=== PATIENT | female | born 1945 | race Two or more races ===

== ENCOUNTER 2025-05-13 17:25 | Inpatient (IN) | payer MEDICARE, MEDICAID ==
[~2025-05-13] VITALS: Ht 157.5 cm; Wt 62.0 kg
--- NOTE | 2025-05-13 18:44 | DVH ---
INDICATION: sob TECHNIQUE: Frontal view of the chest. COMPARISON: None FINDINGS/IMPRESSION: Small right pleural effusion with adjacent opacity. Mild prominence of the cardiomediastinal silhouette. No pneumothorax. S shaped scoliosis.
[2025-05-13 18:51] LABS: Hematocrit 41.5 % (36.0-46.0); Hemoglobin 13.8 g/dL (12.2-16.2); Mean Corpuscular Hemoglobin 31.7 pg (28.0-32.0); Mean Corpuscular Volume 95.4 fL (80.0-100.0); Nucleated Red Blood Cells % 0.1 %
[2025-05-13 19:02] LABS: Alanine Aminotransferase 11 U/L (7-40); Albumin 4.3 g/dL (3.2-4.8); Alkaline Phosphatase 70 U/L (46-116); Anion Gap 13 (5-15); BUN/Creatinine Ratio 7.4 (10.0-20.0); Bilirubin, Total 0.3 mg/dL (0.2-1.0); Calcium 9.0 mg/dL (8.7-10.4); Carbon Dioxide 32 mmol/L (20-31); Chloride 96 mmol/L (98-107); Glucose 114 mg/dL (74-106); Potassium 4.5 mmol/L (3.5-5.1); Sodium 141 mmol/L (136-145); Total Protein 7.7 g/dL (5.7-8.2)
[2025-05-13 19:03] LABS: Blood Urea Nitrogen 51 mg/dL (9-23)
--- NOTE | 2025-05-13 19:35 | ED.PDOC ---
SOB-HPI HPI Comments HPI: 79 y/o F, with PMHx of HTN, HLD, and anemia presents to the ED for CC of shortness of breath. Patient states, she has been experiencing symptoms of shortness of breath with associated weakness, dizziness, and faintness worsening in the last x1week. Patient reports, to have ESRD and is on dialysis receiving Tx every (M,W,F); endorses last time dialyzed to have been as of yesterday (05/13/25). Patient denies cough, fever, chills, chest pain, or palpitations. PMHx: ESRD, HTN, HLD, ANEMIA, OSTEOPOROSIS, SCOLIOSIS, ANEMIA W/ PREVIOUS BLOOD TRANSFUSION SHX: HERNIA REPAIR Vitals: T:98.0 HR:115 RR:18 BP:165/70 O2:98% Rx: DENIES ANY Allergies: PILAR CASTILLO: STANLEY. DYSPNEA DIZZINESS AND WEAKNESS FOR THE LAST THREE DAYS WORSE TODAY. DIALYSIS SESSION YESTERDAY STILL MAKES URINE. HPI: Poor Historian. REVIEW OF SYSTEMS: CONSTITUTIONAL: Denies acute: fever, diaphoresis, chills, HEAD: Denies acute: headache, photophobia Eyes: Denies acute: Double vision, vision loss, eye pain, eye discharge. EARS: Denies acute: tinnitus, hearing loss, ear discharge, ear pain, THROAT: Denies acute: sore throat, swelling, difficulty swallowing , pain with swallowing, change in voice. NECK: Denies acute: neck pain, neck swelling, stiff neck. HEART: Denies acute : chest pain, palpitations, LUNGS: Denies acute: , wheezing, cough, hemoptysis ABDOMEN: Denies acute: abdominal pain, Nausea, Vomiting, diarrhea, melena , hematemesis, hematochezia SKIN: Denies acute: rash, redness, lesions, itchiness. EXTREMITIES: Denies acute: calf pain, numbness, tingling, weakness, denies pain in extremity. Denies acute: Low back pain. Neuro: Denies acute: focal neurological deficit, motor or sensory focal neurological deficit, tremors, seizure like activity, confusion, , change in mental status, loss of bowel or bladder function, cauda equina like symptoms. : Denies acute: dysuria, hematuria, flank pain, increase in urinary frequency. PSYCH: Denies acute: hallucination, suicidal ideation, homicidal ideation. FEMALE: Denies acute: abnormal vaginal bleeding, foul odor, unusual discharge. PHYSICAL EXAM: General: -----moderate---acute distress, awake and alert. Head: normocephalic, atraumatic. No raccoon's eyes, no engle sign. Neck: supple, trachea is midline, no swelling. Throat: Normal phonation. Eyes:, no erythema, no purulent discharge, no proptosis, no icterus. Heart: regular rate, regular rhythm, no significant murmur appreciated. Lungs: no apparent respiratory distress, Able to speak in full sentences. No wheezing, no rhonchi, no crackles. No stridors Clear to auscultation bilaterally. Abdomen: non tender to palpation, non distended, soft, no guarding, no rebound, + bowel sounds. Neuro: Awake, Alert, oriented to name, self, situation, follows commands GCS=15. Speech is normal. Skin: no petechia, no purpura, no cyanosis, non-pale, not jaundice. Lower extremities: --no - Pitting edema no deformity, no focal swelling, no calf TTP. Makes eye contact. moves all four extremities. Face: no apparent facial droop. ED COURSE: DISCLAIMER: This medical document was created using an electronic medical record system with voice recognition software and computerized dictation system. Although this document has been carefully reviewed, there might still be some phonetic and typographical errors. Occasional wrong-word or "sound-alike" substitutions may have occurred due to the inherent limitations of voice recognition software. These areas are purely typographical due to imperfections of the software programs and do not reflect any compromise in the patient's medical care. Please read the chart carefully and recognize, using context, where these substitutions have occurred. Chief Complaint: Shortness of Breath Time Seen by MD: 19:20 Reviewed notes: Nurses Notes, Medications, Allergies Information Source: Patient Mode of Arrival: Ambulatory Severity: Moderate Timing: Weeks Duration: Since onset Context: At Rest PE Risk Factors: None History of: None Prehospital treatment: None Modifying Factors: Nothing Was a procedure done? Was a procedure done?: No Differential Dx Differential Diagnosis: Bronchitis, Pneumonia, Pharyngitis, URI, Other (DDx include ACS, unstable angina, anxiety, PE, pneumothroax, neoplasm, cardiac ischemia, COPD, asthma, CHF, pleural effusion, tobacco abuse, pneumonia, hypoxia , hypercapnia, anemia., infection/sepsis., pulmonary edema. Asthma, Cardiac tamponade, infection.) X-Ray, Labs, Meds, VS Vital Signs Date Time Temp Pulse Resp B/P (MAP) Pulse Ox O2 Delivery O2 Flow Rate FiO2 05/13/25 17:44 83 05/13/25 17:34 98.0 115 18 165/70 98 98.0 Lab Test 05/13/25 21:14 05/13/25 19:22 05/13/25 18:32 05/13/25 17:49 Range/Units Troponin I High Sensitivity 26 26 26 </=34 ng/L White Blood Count 5.7 4.4-10.8 10^3/uL Red Blood Count 4.35 4.0-5.20 10^6/uL Hemoglobin 13.8 12.2-16.2 g/dL Hematocrit 41.5 36.0-46.0 % Mean Corpuscular Volume 95.4 80.0-100.0 fL Mean Corpuscular Hemoglobin 31.7 28.0-32.0 pg Mean Corpuscular Hemoglobin Concent 33.2 32.0-36.0 g/dL Red Cell Distribution Width 16.1 H 11.8-14.3 % Platelet Count 234 140-450 10^3/uL Mean Platelet Volume 7.8 6.9-10.8 fL Neutrophils (%) (Auto) 61.6 37.0-80.0 % Lymphocytes (%) (Auto) 26.4 10.0-50.0 % Monocytes (%) (Auto) 9.3 0.0-12.0 % Eosinophils (%) (Auto) 1.6 0.0-7.0 % Basophils (%) (Auto) 1.1 0.0-2.0 % Neutrophils # (Auto) 3.5 1.6-8.6 10 ^3/uL Lymphocytes # (Auto) 1.5 0.4-5.4 10 ^3/uL Monocytes # (Auto) 0.5 0-1.3 10 ^3/uL Eosinophils # (Auto) 0.1 0-0.8 10 ^3/uL Basophils # (Auto) 0.1 0-0.2 10 ^3/uL Nucleated Red Blood Cells 0.1 % D-Dimer, Quantitative 1.17 H 0.0-0.49 mg/L FEU Sodium Level 141 136-145 mmol/L Potassium Level 4.5 3.5-5.1 mmol/L Chloride Level 96 L 98-107 mmol/L Carbon Dioxide Level 32 H 20-31 mmol/L Anion Gap 13 5-15 Blood Urea Nitrogen 51 H 9-23 mg/dL Creatinine 6.92 H 0.550-1.02 mg/dL Glomerular Filtration Rate Calc 6 >90 mL/min BUN/Creatinine Ratio 7.4 L 10.0-20.0 Serum Glucose 114 H 74-106 mg/dL Calcium Level 9.0 8.7-10.4 mg/dL Total Bilirubin 0.3 0.2-1.0 mg/dL Aspartate Amino Transferase (AST) 16 13-40 U/L Alanine Aminotransferase (ALT) 11 7-40 U/L Alkaline Phosphatase 70 46-116 U/L Total Protein 7.7 5.7-8.2 g/dL Albumin 4.3 3.2-4.8 g/dL POC Glucose 153 H 70-106 mg/dl [place] [id number] Ph: [phone] DIAGNOSTIC IMAGING Diagnostic Imaging Report : [id number] Signed PATIENT: STANLEY CASTILLO ACCT: [id number] UNIT: [id number] : 1945 LOC: ER ROOM / BED: / AGE / SEX: 79 / F ADM STATUS: REG ER SERVICE 06 ORDERING PHYSICIAN: YAS RIOS DO PROCEDURE(s): CXRP - CHEST PORTABLE REASON: sob ORDER NUMBER(s): [id number], ACCESSION NUMBER(s): [id number] INDICATION: sob TECHNIQUE: Frontal view of the chest. COMPARISON: None FINDINGS/IMPRESSION: Small right pleural effusion with adjacent opacity. Mild prominence of the cardiomediastinal silhouette. No pneumothorax. S shaped scoliosis. ATED BY: WANDER FRITZ MD DICTATED DATE/TIME: 05/13/251841 SIGNED BY: WANDER FRITZ MD SIGNED DATE/TIME: 05/13/251841 CC: Time of 1ST Reevaluation: 19:50 Reevaluation 1ST: Unchanged Patient Education/Counseling: Diagnosis, Treatment Family Education/Counseling: Diagnosis, Treatment SEPSIS Sepsis Screen Date sepsis recognized/suspect: May 13, 2025 Time Sepsis recognized/suspect: 1736 Recent Procedure: No On Antibiotic Therapy: No Respiratory Rate >20: No Heart Rate >90: Yes Temp<36 C (96.8 F) or >38.3 C: No SBP <90 or MAP <65 mmHG: No New Acute Mental Status Change: No Is the patient on CPAP, BIPAP,: No Physician Orders Electrocardigram (05/13/25 18:05) Help Desk Operator (05/13/25 ) Chest Portable (05/13/25 18:07) Vital Signs Date Time Temp Pulse Resp B/P (MAP) Pulse Ox O2 Delivery O2 Flow Rate FiO2 05/13/25 17:44 83 05/13/25 17:34 98.0 115 18 165/70 98 98.0 Laboratory Tests Test 05/13/25 18:32 White Blood Count 5.7 10^3/uL (4.4-10.8) Departure 1 Departure Time of Disposition: 20:13 Impression: Primary Impression: Dyspnea Additional Impressions: Pleural effusion End-stage renal disease on hemodialysis Dizziness Generalized weakness Disposition: ADMITTED INPATIENT Admit to: [facility] Condition: Guarded Discharged With: Self Critical Care Note Critical Care Time?: Yes (35 min-critical care time only) Critical care comment: Due to a high probability of clinically significant, life threatening deterioration, the patient required my highest level of preparedness to intervene emergently and I personally spent this critical care time directly and personally managing the patient. This critical care time included obtaining a history; examining the patient; pulse oximetry; ordering and review of studies; arranging urgent treatment with development of a management plan; evaluation of patient's response to treatment; frequent reassessment; and, discussions with other providers. This critical care time was performed to assess and manage the high probability of imminent, life-threatening deterioration that could result in multi-organ failure. It was exclusive of separately billable procedures and treating other patients and teaching time. Please see my other sections and the rest of the note for further information on patient assessment and treatment. Heart Score Heart Score: Heart Score Response (Comments) Value History Slightly Suspicious 0 EKG Normal 0 Age >65 2 Risk Factors 1 or 2 risk factors 1 Troponin Normal limit 0 Total 3 I personally scribed for YAS RIOS DO ([email or web address]) on 05/13/25 at 19:35. Electronically submitted by Dina Avitia ([email or web address]). I personally scribed for YAS RIOS DO ([email or web address]) on 05/13/25 at 19:37. Electronically submitted by Dina Avitia ([email or web address]). I personally scribed for YAS RIOS DO ([email or web address]) on 05/13/25 at 22:18. Electronically submitted by Crystal Gonzalez ([email or web address]). YAS RIOS DO May 13, 2025 19:35
[2025-05-13] MEDS ORDERED: NITROGLYCERIN 0.4 MG SL TAB SL PRN (22:15)
[2025-05-13] MEDS ORDERED: MORPHINE SULFATE INJ 2 MG/ml SYRG IV PRN (22:15)
--- NOTE | 2025-05-13 22:53 | DVHHPRES ---
History of Present Illness Resident Creating Document: JONATAN BREWSTER History of Present Illness Ms Lizbeth Taylor, a 79-year-old female accompanied by daughter, past medical history of ESRD on MWF hemodialysis, producing urine, left arm fistula, hypertension, hyperlipidemia, arthritis, anemia, [id number] type 2 diabetes mellitus,osteoporosis,scoliosis presented to the ER with a history of increasing shortness of breaths since last Monday (4 days back). She also reports having global headache for the same duration. According to the daughter the patient had a dialysis yesterday, the patient was feeling shortness of breaths to the point she had to use oxygen during dialysis. She was advised to go to the ER if shortness of breath persists. The patient reports shortness of breaths improves on sitting up and worsens on lying down. She denies any paroxysmal nocturnal dyspnea. She also reports having a episode of dizziness, she almost fainted and reports having blurry vision, which resolved now. This morning the patient visited the primary care physician, she referred the patient to a coal bagger. She does not have any traffic maintenance officer. Past medical history: As above Past surgical history: 30 years ago umbilical hernia repair. Allergies: None PCP: Dr. Belia Murrieta [place] years ago, 1 pack per week Drugs: Never Alcohol: Occasional Full code Review of Systems Respiratory: Shortness of breath, SOB with excertion Allergies: Coded Allergies: NO KNOWN ALLERGIES (Unverified , 05/13/25) Medications Current Medications Medications Dose Ordered Sig/Abilio Route Start Time Stop Time Status Last Admin Dose Admin Acetaminophen 650 mg Q6HP PRN PO 05/13/25 22:15 Nitroglycerin 0.4 mg Q5MINP PRN SL 05/13/25 22:15 Morphine Sulfate 2 mg Q30M PRN IV 05/13/25 22:15 Furosemide 40 mg DAILY IV 05/14/25 10:00 Exam Vital Signs Vital Signs Date Time Temp Pulse Resp B/P (MAP) Pulse Ox O2 Delivery O2 Flow Rate FiO2 05/13/25 17:44 83 05/13/25 17:34 98.0 18 165/70 98 98.0 Labs/Xrays Labs Test 05/13/25 21:14 05/13/25 18:32 05/13/25 17:49 Range/Units Troponin I High Sensitivity 26 </=34 ng/L White Blood Count 5.7 4.4-10.8 10^3/uL Red Blood Count 4.35 4.0-5.20 10^6/uL Hemoglobin 13.8 12.2-16.2 g/dL Hematocrit 41.5 36.0-46.0 % Mean Corpuscular Volume 95.4 80.0-100.0 fL Mean Corpuscular Hemoglobin 31.7 28.0-32.0 pg Mean Corpuscular Hemoglobin Concent 33.2 32.0-36.0 g/dL Red Cell Distribution Width 16.1 H 11.8-14.3 % Platelet Count 234 140-450 10^3/uL Mean Platelet Volume 7.8 6.9-10.8 fL Neutrophils (%) (Auto) 61.6 37.0-80.0 % Lymphocytes (%) (Auto) 26.4 10.0-50.0 % Monocytes (%) (Auto) 9.3 0.0-12.0 % Eosinophils (%) (Auto) 1.6 0.0-7.0 % Basophils (%) (Auto) 1.1 0.0-2.0 % Neutrophils # (Auto) 3.5 1.6-8.6 10 ^3/uL Lymphocytes # (Auto) 1.5 0.4-5.4 10 ^3/uL Monocytes # (Auto) 0.5 0-1.3 10 ^3/uL Eosinophils # (Auto) 0.1 0-0.8 10 ^3/uL Basophils # (Auto) 0.1 0-0.2 10 ^3/uL Nucleated Red Blood Cells 0.1 % D-Dimer, Quantitative 1.17 H 0.0-0.49 mg/L FEU Sodium Level 141 136-145 mmol/L Potassium Level 4.5 3.5-5.1 mmol/L Chloride Level 96 L 98-107 mmol/L Carbon Dioxide Level 32 H 20-31 mmol/L Anion Gap 13 5-15 Blood Urea Nitrogen 51 H 9-23 mg/dL Creatinine 6.92 H 0.550-1.02 mg/dL Glomerular Filtration Rate Calc 6 >90 mL/min BUN/Creatinine Ratio 7.4 L 10.0-20.0 Serum Glucose 114 H 74-106 mg/dL Calcium Level 9.0 8.7-10.4 mg/dL Total Bilirubin 0.3 0.2-1.0 mg/dL Aspartate Amino Transferase (AST) 16 13-40 U/L Alanine Aminotransferase (ALT) 11 7-40 U/L Alkaline Phosphatase 70 46-116 U/L Total Protein 7.7 5.7-8.2 g/dL Albumin 4.3 3.2-4.8 g/dL POC Glucose 153 H 70-106 mg/dl SEPSIS Sepsis Screen Date sepsis recognized/suspect: May 13, 2025 Time Sepsis recognized/suspect: 1736 Recent Procedure: No On Antibiotic Therapy: No Respiratory Rate >20: No Heart Rate >90: Yes Temp<36 C (96.8 F) or >38.3 C: No SBP <90 or MAP <65 mmHG: No New Acute Mental Status Change: No Is the patient on CPAP, BIPAP,: No Physician Orders Electrocardigram (05/13/25 18:05) Sample Mounter (05/13/25 ) Chest Portable (05/13/25 18:07) Admit (05/13/25 22:14) Allergies (05/13/25 22:14) Code Status (05/13/25 22:14) Oxygen Per Hour (05/13/25 22:14) Complete Blood Count (05/14/25 04:00) Comprehensive Metabolic Panel (05/14/25 04:00) Acetaminophen Tablet (Tylenol Tablet) (05/13/25 22:15) Sequential Compression Device (05/13/25 ) Nitroglycerin Sublingual (Ntrostat Subli (05/13/25 22:15) Morphine Sulfate Injection (05/13/25 22:15) Oxygen By Nasal Cannula (05/13/25 22:14) Stat Ekg For Chest Pain (05/13/25 22:14) Notify Md Of Changes From Base (05/13/25 22:14) District Court Justice For 24 Hours (05/13/25 22:14) Emergency Dysrhythmia Protocol (05/13/25 22:14) Rhythm Strips Once Every Shift (05/13/25 22:14) Furosemide Injection (Lasix Injection) (05/14/25 10:00) Vital Signs Date Time Temp Pulse Resp B/P (MAP) Pulse Ox O2 Delivery O2 Flow Rate FiO2 05/13/25 17:44 83 05/13/25 17:34 98.0 115 18 165/70 98 98.0 Laboratory Tests Test 05/13/25 18:32 White Blood Count 5.7 10^3/uL (4.4-10.8) Assessment/Plan Assessment/Plan ESRD on hemodialysis Hypertensive heart disease Chest x-ray: Cardiomegaly, pleural effusion -nephrology consulted -labetalol 300 mg b.i.d. -IV hydralazine -injection Lasix Type 2 diabetes mellitus -HbA1c ordered -Monitor blood glucose Presyncope -Orthostatic vitals and head CT ordered GI prophylaxis: Pantoprazole DVT prophylaxis: SCDs Diet: Cardiac Goals of care discussed with the patient for more than 27 minutes: Full code status Case discussed with , patient and RN Plan discussed with: Patient, Other (RN) My Orders Orders - JONATAN BREWSTER Procedure Category Date Status Time Admit ADMIT 05/13/25 Transmitted 22:14 Allergies ERON 05/13/25 In Process 22:14 Code Status CODE 05/13/25 Transmitted 22:14 Oxygen Per Hour RT 05/13/25 Transmitted 22:14 Complete Blood Count LAB 05/14/25 Verified 04:00 Comprehensive LAB 05/14/25 Verified Metabolic Panel 04:00 Acetaminophen Tablet PHA 05/13/25 In Process (Tylenol Tablet) 22:15 Sequential ERON 05/13/25 In Process Compression Device Nitroglycerin PHA 05/13/25 In Process Sublingual (Ntrostat 22:15 Morphine Sulfate PHA 05/13/25 In Process Injection 22:15 Oxygen By Nasal RT 05/13/25 Transmitted Cannula 22:14 Stat Ekg For Chest ERON 05/13/25 In Process Pain 22:14 Notify Md Of Changes ERON 05/13/25 In Process From Base 22:[address] Justice For ERON 05/13/25 In Process 24 Hours 22:14 Emergency Dysrhythmia ERON 05/13/25 In Process Protocol 22:14 Rhythm Strips Once ERON 05/13/25 In Process Every Shift 22:14 Furosemide Injection PHA 05/14/25 In Process (Lasix Injection) 10:00 Visit Coding STANDARD RES Billing Provider: RAFIA SLOAN MD Date of Service if different f: May 14, 2025 Common Visit Codes: 13660-NWOKJVR INP/OBS CARE (HIGH) Secondary Visit Codes: 37253-PTEAJXPN CARE PLAN 30 MINUTES JONATAN BREWSTER May 13, 2025 22:53
[2025-05-13] MEDS ORDERED: ATOR40TA52 PO (22:59)
[2025-05-13] MEDS ORDERED: LABE300T5 PO (23:07)
[2025-05-14] MEDS: FUROSEMIDE 100 MG/10ML VIAL IV ONE (01:58)
[2025-05-14 02:10] LABS: Base Excess 5.0 mmol/L (-2.0-3.0)
[2025-05-14] MEDS: hydrALAZINE HCL 20 MG/ML VL IV ONE (02:18)
[2025-05-14] MEDS ORDERED: DEXTROSE (50%) 50ML SYRG IV PRN (05:15)
[2025-05-14] MEDS: LABETALOL HCL 200 MG TAB PO ONE (05:29)
--- NOTE | 2025-05-14 06:46 | DVH ---
EXAM: CT HEAD WITHOUT CONTRAST INDICATION: Presyncope TECHNIQUE: CT of the head without intravenous contrast. Coronal and sagittal reformatted images are submitted. Radiation Dose : 1. Head: CT Dose: CTDI volume is 48.65 mGy. Dose-length product is 778.5 mGy*cm The dose indicators for CT are the volume Computed Tomography (CT) Dose Index (CTDIvol) and the Dose Length Product (DLP), and are measured in units of mGy and mGy-cm, respectively. These indicators are not patient dose, but values generated from the CT scanner acquisition factors. The report includes radiation exposure data for exposures received during this examination. All CT scans at this medical facility are performed using dose modulation techniques as appropriate to a performed exam including the following: Automated exposure control was utilized; adjustment of the MA and/or KV according to patient size; and use of iterative reconstruction technique. COMPARISON: None FINDINGS: There is no evidence of acute intracranial hemorrhage, extra-axial collection, mass effect, midline shift, herniation or hydrocephalus. There are periventricular and subcortical hypodensities, nonspecific, but likely reflecting sequelae of chronic microvascular ischemic changes. Generalized cortical volume loss. The ventricles, sulci and cisterns are age appropriate. The arias-white differentiation is intact. The visualized paranasal sinuses and mastoid air cells are clear. No depressed calvarial fracture. The surrounding soft tissues are unremarkable. IMPRESSION: 1. No evidence of acute intracranial abnormality. 2. Generalized volume loss and sequelae of chronic microvascular ischemic changes there are periventricular and subcortical white matter.
[2025-05-14] MEDS: ACCU-CHEK COMFORT CURVE STRIP VI SCH (06:55)
[2025-05-14] MEDS: InsuLIN REG 1unit/0.01ml Soln (100units/ml) SC SCH (06:55)
[2025-05-14 06:58] LABS: Hematocrit 37.9 % (36.0-46.0); Hemoglobin 12.8 g/dL (12.2-16.2); Mean Corpuscular Hemoglobin 31.8 pg (28.0-32.0); Mean Corpuscular Volume 94.1 fL (80.0-100.0); Nucleated Red Blood Cells % 0.2 %
[2025-05-14 07:24] LABS: Alanine Aminotransferase 11 U/L (7-40); Alkaline Phosphatase 60 U/L (46-116); Anion Gap 15 (5-15); BUN/Creatinine Ratio 6.6 (10.0-20.0); Calcium 8.9 mg/dL (8.7-10.4); Carbon Dioxide 28 mmol/L (20-31); Chloride 98 mmol/L (98-107); Glucose 81 mg/dL (74-106); Potassium 4.7 mmol/L (3.5-5.1); Sodium 141 mmol/L (136-145); Total Protein 7.2 g/dL (5.7-8.2)
[2025-05-14 07:26] LABS: Albumin 4.0 g/dL (3.2-4.8); Bilirubin, Total 0.4 mg/dL (0.2-1.0)
[2025-05-14 07:27] LABS: Blood Urea Nitrogen 50 mg/dL (9-23)
[2025-05-14 07:55] VITALS: PULSE 67; RESP 12; O2SAT 96
[2025-05-14] MEDS: LABETALOL HCL 200 MG TAB PO SCH (10:00)
[2025-05-14] MEDS: FUROSEMIDE 40 MG/4 ML VIAL IV SCH (10:00)
--- NOTE | 2025-05-14 10:08 | DVHINCON2 ---
Date of service: May 14, [address] Dunbar Reason for Consultation End-stage kidney disease History of Present Illness This is a 79-year-old female with history of end-stage kidney disease who presents to the emergency room complaining of shortness of breath and headaches. As per the history obtained from the patient she missed her dialysis on Monday and also had a short-term treatment on Monday. The patient reports shortness of breaths improves on sitting up and worsens on lying down. She also reports having a episode of dizziness, she almost fainted and reports having blurry vision, which resolved now. Nephrology has been consulted for continuation of dialysis. Past Medical History End-stage kidney disease on hemodialysis Hypertension Type 2 diabetes Hyperlipidemia Past Surgical History Umbilical hernia repair, dialysis access Family History Noncontributory Social History No active history of smoking, alcohol or drug abuse Allergies: Coded Allergies: NO KNOWN ALLERGIES (Unverified , 05/13/25) Home Meds Reported Medications Labetalol Hcl (Labetalol Hcl) 300 Mg Tab, 300 TAB PO BID 05/13/25 Atorvastatin Calcium (ATORVASTATIN CALCIUM) 40 Mg Tab, 40 TAB PO DAILY 05/13/25 Current Medications Current Medications Medications (Trade) Dose Ordered Sig/Abilio Route PRN Reason Start Time Stop Time Status Last Admin Acetaminophen (Tylenol Tablet) 650 mg Q6HP PRN PO PAIN SCALE 1-3 OR TEMP>100.4 05/13/25 22:15 Nitroglycerin (Ntrostat Sublingual) 0.4 mg Q5MINP PRN SL FOR CHEST PAIN 05/13/25 22:15 Morphine Sulfate 2 mg Q30M PRN IV FOR CHEST PAIN 05/13/25 22:15 Furosemide (Lasix Injection) 40 mg DAILY IV 05/14/25 10:00 Labetalol HCl (Normodyne Tablet) 300 mg Q12HR PO 05/14/25 10:00 Diagnostic Test (Pha) (Accu-Chek Comfort Curve T) 1 strip ACHS 05/14/25 07:00 05/14/25 06:55 Insulin Human Regular (InsuLIN R) ACHS SC 05/14/25 07:00 Dextrose 50 ml UD PRN IV Blood Sugar LESS THAN 60 05/14/25 05:15 Review of Systems 12 point review of system negative except as stated in the HPI Vital Signs Vital Signs Date Time Temp Pulse Resp B/P (MAP) Pulse Ox O2 Delivery O2 Flow Rate FiO2 05/14/25 08:00 64 05/14/25 07:55 12 96 Room Air* 0 21 05/14/25 07:55 97.9 147/48 (81) 97.9 Physical Exam Awake alert oriented x3 HEENT: Normocephalic, no JVD Lungs: Bilateral good air entry CVS: S1, S2 regular rate rhythm Abdomen: Soft, bowel sounds present TALENT ACQUISITION SOURCER: No focal deficits Extremities: No edema Labs/Diagnostic Data Labs Test 05/14/25 06:52 05/14/25 06:18 05/14/25 01:55 05/13/25 21:14 Range/Units POC Glucose 96 70-106 mg/dl White Blood Count 6.1 4.4-10.8 10^3/uL Red Blood Count 4.03 4.0-5.20 10^6/uL Hemoglobin 12.8 12.2-16.2 g/dL Hematocrit 37.9 36.0-46.0 % Mean Corpuscular Volume 94.1 80.0-100.0 fL Mean Corpuscular Hemoglobin 31.8 28.0-32.0 pg Mean Corpuscular Hemoglobin Concent 33.8 32.0-36.0 g/dL Red Cell Distribution Width 16.1 H 11.8-14.3 % Platelet Count 214 140-450 10^3/uL Mean Platelet Volume 8.1 6.9-10.8 fL Neutrophils (%) (Auto) 57.3 37.0-80.0 % Lymphocytes (%) (Auto) 28.9 10.0-50.0 % Monocytes (%) (Auto) 9.7 0.0-12.0 % Eosinophils (%) (Auto) 3.2 0.0-7.0 % Basophils (%) (Auto) 0.9 0.0-2.0 % Neutrophils # (Auto) 3.5 1.6-8.6 10 ^3/uL Lymphocytes # (Auto) 1.7 0.4-5.4 10 ^3/uL Monocytes # (Auto) 0.6 0-1.3 10 ^3/uL Eosinophils # (Auto) 0.2 0-0.8 10 ^3/uL Basophils # (Auto) 0.1 0-0.2 10 ^3/uL Nucleated Red Blood Cells 0.2 % Sodium Level 141 136-145 mmol/L Potassium Level 4.7 3.5-5.1 mmol/L Chloride Level 98 98-107 mmol/L Carbon Dioxide Level 28 20-31 mmol/L Anion Gap 15 5-15 Blood Urea Nitrogen 50 H 9-23 mg/dL Creatinine 7.62 H 0.550-1.02 mg/dL Glomerular Filtration Rate Calc 5 >90 mL/min BUN/Creatinine Ratio 6.6 L 10.0-20.0 Serum Glucose 81 74-106 mg/dL Hemoglobin A1c 4.8 <5.7 % A1C Calcium Level 8.9 8.7-10.4 mg/dL Total Bilirubin 0.4 0.2-1.0 mg/dL Aspartate Amino Transferase (AST) 13 13-40 U/L Alanine Aminotransferase (ALT) 11 7-40 U/L Alkaline Phosphatase 60 46-116 U/L Total Protein 7.2 5.7-8.2 g/dL Albumin 4.0 3.2-4.8 g/dL Blood Gas Specimen Type Arterial Blood Gas Sample Site Right radial Blood Gas Patient Temperature 37.0 Arterial Blood Date Drawn [id number] Arterial Blood pH 7.507 H 7.350-7.450 Arterial Blood Partial Pressure CO2 36.3 32.0-45.0 mmHg Arterial Blood Partial Pressure O2 116.2 H 83.0-108.0 mmHg Arterial Blood HCO3 28.1 H 21.0-28.0 mmol/L Arterial Blood Oxygen Saturation 97.6 94.0-98.0 % Arterial Blood Base Excess 5.0 H -2.0-3.0 mmol/L Arterial Blood Oxyhemoglobin 96.3 94.0-98.0 % Arterial Blood Carboxyhemoglobin 0.9 0.5-1.5 % Arterial Blood Methemoglobin 0.4 0.0-1.5 % Arterial Blood Deoxyhemoglobin 2.4 0.0-5.0 % Fernando Test Yes Blood Gas Total Hemoglobin 12.30 12.0-16.0 g/dL Blood Gas Liter Flow 2.00 Blood Gas Modality Nasal cannula Blood Gas Spontaneous Rate 20 FiO2 % 28.0 Troponin I High Sensitivity 26 </=34 ng/L Test 05/13/25 18:32 Range/Units D-Dimer, Quantitative 1.17 H 0.0-0.49 mg/L FEU Assessment End-stage kidney disease on hemodialysis Accelerated hypertension Type 2 diabetes Hyperlipidemia Headaches Plan/Recommendation Hemodialysis today with ultrafiltration of up to 3 L as tolerated. Continue with blood pressure control. Plan discussed with: Patient, Daughter SINA GREGG MD May 14, 2025 10:08
[2025-05-14] MEDS: SODIUM CHL 0.9% 1000 ML BAG XX ONE (11:45)
[2025-05-14 12:51] LABS: Hepatitis B Surface Antigen Negative (Negative); Hepatitis C Antibody Negative (Negative)
[2025-05-14] MEDS: ACETAMINOPHEN 325 MG TAB PO PRN (15:05)
[2025-05-14] MEDS ORDERED: MORPHINE SULFATE INJ 2 MG/ml SYRG IV PRN (16:15)
--- NOTE | 2025-05-14 16:27 | ECG ---
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
[2025-05-14] MEDS: ONDANSETRON HCL 4 MG/2 ML VIAL IV PRN (16:37)
[2025-05-14] MEDS: MORPHINE SULFATE 4 MG/ML SYR/VIAL IV PRN (16:38)
--- NOTE | 2025-05-14 16:56 | DVHPNRES ---
Progress Note Date Seen: May 14, 2025 Resident Creating Document: MICHA GONSALEZ RESIDENT Medical Necessity Reason Pt with a Central, PICC or Fol: No Subjective Review of Systems Lizbeth Taylor is a 79-year-old female patient who presents to the ED with chief complaint of intractable constant throbbing holocephalic headache which started approximately three days ago, intensity 10/10 and has not improved with Tylenol, associated with photophobia, chills, nausea and nonbloody vomiting. Patient also reports dyspnea in the context of missing one hemodialysis session (patient did receive hemodialysis session on Monday05/12/2025 but did not get it on Monday05/09/2025). Denies any associated symptoms including neck stiffness, sick contacts, recent travel and neurological deficits. Past medical history: Hypertension, dyslipidemia, diabetes, end-stage renal disease (completing [facility], Monday and Monday), questionable asthma, gastritis, umbilical hernia status postop with recurrence, chronic diarrhea, osteoporosis Surgical history: Av fistula, hernia repair Family history: Heart disease in father's side Social history: Lives in [place] with daughter (next of kin). Denies current tobacco, alcohol and other drug abuse. Allergies: Denies Home medication: Does not recall. Per EMR atorvastatin and labetalol. Patient seen and examined at bedside. Currently continues with throbbing holocephalic headache intensity 10/10. Patient's blood pressure continues elevated. Patient underwent hemodialysis session on 05/14/2025. Objective vital signs Vital Sign Date Time Temp Pulse Resp B/P (MAP) Pulse Ox O2 Delivery O2 Flow Rate FiO2 05/14/25 16:00 98.2 70 16 165/40 (81) 97 98.2 05/14/25 07:55 Room Air* 0 21 medications Current Medications Medications Dose Ordered Sig/Abilio Route Start Time Stop Time Status Last Admin Dose Admin Acetaminophen 650 mg Q6HP PRN PO 05/13/25 22:15 05/14/25 15:05 650 MG Furosemide 40 mg DAILY IV 05/14/25 10:00 Labetalol HCl 300 mg Q12HR PO 05/14/25 10:00 Diagnostic Test (Pha) 1 strip ACHS 05/14/25 07:00 05/14/25 11:43 1 STRIP Insulin Human Regular ACHS SC 05/14/25 07:00 Dextrose 50 ml UD PRN IV 12/10/25 05:15 Atorvastatin Calcium 40 mg HS PO 05/14/25 22:00 Morphine Sulfate 1 mg Q4HP PRN IV 05/14/25 16:15 UNV Aspirin 81 mg DAILY PO 05/15/25 10:00 Nifedipine 30 mg DAILY PO 05/15/25 10:00 Morphine Sulfate 2 mg Q4HPRN PRN IV 05/14/25 16:30 Ondansetron HCl 4 mg Q4HPRN PRN IV 05/14/25 16:30 Examination Patient lying in bed, in no acute distress General: Lucid, afebrile, mucosae are moist Cardiovascular: Normal S1 and S2. No murmurs, gallops or rubs Respiratory: Normal ventilation mechanics. Clear lung sounds on auscultation Abdomen: Soft, nontender, no organomegaly, normal bowel sounds MSK/skin: Mobilizes 4 limbs. Skin is dry and warm. Left arm AV fistula which thrills Neurological: Oriented in 3 spheres. No motor no sensitive deficits. Pupils are isocoric and reactive. Negative Brudzinski sign laboratory and microbiology Laboratory Tests 05/14/25 06:18 Test 05/14/25 06:18 Range/Units Serum Glucose 81 74-106 mg/dL Problem List/Assessment/Plan Problem List/Assessment/Plan Hypertensive crisis Rule out CVA Intractable headache Unlikely meningitis/encephalitis Completed head CT which ruled out intracranial hemorrhage. Generalized volume loss and sequela of chronic microvascular ischemic changes Ordered echocardiogram, carotid duplex and MRI. Optimize pain therapy (Tylenol and morphine) Currently with p.o. labetalol, nifedipine ESRD on hemodialysis Chest x-ray: Cardiomegaly, pleural effusion Nephrology on board: Completing hemodialysis session. Patient urinates. Currently on IV furosemide. Type 2 diabetes mellitus - Controlled (Hemoglobin A1c 4.8%) Hypertension Dyslipidemia Monitor blood glucose Continue labetalol 300 mg p.o. b.i.d. Indicated nifedipine 30 mg p.o. daily Chronic diarrhea Ordered stool studies. Osteoporosis Scoliosis Ordered vitamin-D Goals of care discussed with patient for over 18 minutes: Full code status Discussed plan with Dr. Baker, daughter, patient and nurses: Admitted to telemetry. Planning to rule out CVA, patient has intractable headache (restrictive of her lifetime). Optimizing antihypertensive medication. Pending complementary workup. Plan discussed with: Patient, Daughter, Other (Nurses) My Orders My Orders Orders - MICHA GONSALEZ RESIDENT Procedure Category Date Status Time Electrocardigram EKG 05/14/25 Logged 16:06 Carotid Duplx W Color US 05/14/25 Logged DOP 16:06 Echo 2d Mode Cardiac US 05/14/25 Logged DOP 16:06 Aspirin Enteric PHA 05/15/25 In Process Coated Tablet 10:00 Nifedipine Er PHA 05/15/25 In Process (Procardia Xl 10:00 Brain Head Wo Contrast MRI 05/14/25 Logged 16:06 Ondansetron Hcl PHA 05/14/25 In Process (Zofran) 16:30 Morphine Sulfate PHA 05/14/25 In Process Injection 16:30 Atorvastatin (Lipitor) PHA 05/14/25 In Process 22:00 Visit Coding STANDARD RES Billing Provider: ADELA BAKER MD Date of Service if different f: May 14, 2025 Common Visit Codes: [id number] INP/OBS CARE(HIGH) Secondary Visit Codes: [id number] CARE PLAN 30 MINUTES MICHA GONSALEZ RESIDENT May 14, 2025 16:56
--- NOTE | 2025-05-14 17:17 | DVH ---
ULTRASOUND CAROTID DUPLEX BILATERAL REASON FOR EXAM: Questionable CVA COMPARISON: None TECHNIQUE: Using real-time freeze-frame technique with a high-frequency small parts transducer, multiple longitudinal and transverse sections were obtained. Simultaneous color flow Doppler imaging was performed. FINDINGS: Calcified and noncalcified plaques are present in both carotid bulbs and internal carotid arteries. Waveforms are normal. Flow is laminar throughout. Peak systolic velocities as well as ICA/CCA ratios are normal. Flow through the vertebral and external carotid arteries is antegrade bilaterally. PEAK SYSTOLIC VELOCITIES (cm/sec): RIGHT: CCA 81.1 Proximal ICA 61.8 Mid ICA 64.5 Distal ICA 117.9 ECA 50.7 ICA/CCA ratio 1.5 LEFT: CCA 68.0 Proximal ICA 53.6 Mid ICA 65.8 Distal ICA 91.7 ECA 57.1 ICA/CCA ratio 1.3 IMPRESSION: Atherosclerotic vascular disease with no hemodynamically significant stenosis. Any narrowing is less than 50%. Measurement of carotid stenosis is based on velocity parameters that correlate the residual internal carotid diameter with that of the more distal vessel in accordance with the [place] Symptomatic Carotid Endarterectomy Trial (NASCET).
--- NOTE | 2025-05-14 17:29 | DVH ---
EXAMINATION: MRI BRAIN HEAD WO CONTRAST INDICATION: rULE OUT cva COMPARISON: CT HEAD WITHOUT CONTRAST on DOS: 05/14/25 TECHNIQUE: Multiplanar, multisequence magnetic resonance imaging of the brain was performed without the use of intravenous contrast. FINDINGS: No evidence of acute or remote infarct. No intracranial hemorrhage. No mass effect. There is periventricular/deep white matter T2/FLAIR hyperintensity is nonspecific, but most commonly associated with chronic microvascular disease. The ventricles and sulci are normal in size for age. Clear basal cisterns. Flow voids in the major intracranial vessels are maintained. No abnormality of the orbits. Paranasal sinuses and mastoid air cells are clear. No abnormality of the visualized osseous structures and extracranial soft tissues. IMPRESSION: 1. No acute infarct, intracranial hemorrhage, or mass effect. 2. Chronic microvascular changes.
[2025-05-14 17:41] LABS: Triglycerides 89.0 mg/dL (< 150)
[2025-05-14 17:43] LABS: Cholesterol 187.0 mg/dL (< 200)
[2025-05-14 17:44] LABS: HDL Cholesterol 60.0 mg/dL (40-59); Magnesium 2.6 mg/dL (1.6-2.6)
[2025-05-14 17:59] LABS: INR 1.07 (0.9-1.15); Partial Thromboplastin Time 24.0 SEC (24.5-34.5); Prothrombin Time 11.3 sec (9.3-11.8)
[2025-05-14] MEDS ORDERED: ERGOCALCIFEROL 50,000 UNIT(1.25MG) CAP PO SCH (22:00)
[2025-05-14] MEDS: ATORVASTATIN 20 MG TAB PO SCH (23:12)
[2025-05-14 23:43] VITALS: BP 144/82; PULSE 82; PULSE 85; RESP 16; TEMP 97.8; O2SAT 98
[2025-05-15] VITALS (8 sets, daily range): BP systolic 120–137; BP diastolic 58–74; PULSE 67–82; RESP 17–20; TEMP 97.1–98.2; O2SAT 90–99
[2025-05-15 06:14] LABS: Potassium 5.0 mmol/L (3.5-5.1); Sodium 139 mmol/L (136-145)
[2025-05-15 06:15] LABS: Anion Gap 10 (5-15)
[2025-05-15 06:16] LABS: Calcium 8.8 mg/dL (8.7-10.4)
[2025-05-15 06:20] LABS: Glucose 85 mg/dL (74-106)
[2025-05-15 06:21] LABS: BUN/Creatinine Ratio 4.8 (10.0-20.0)
[2025-05-15 06:25] LABS: Carbon Dioxide 32 mmol/L (20-31); Chloride 97 mmol/L (98-107)
[2025-05-15 06:26] LABS: Blood Urea Nitrogen 27 mg/dL (9-23)
[2025-05-15 06:35] LABS: Hematocrit 36.2 % (36.0-46.0); Hemoglobin 12.0 g/dL (12.2-16.2); Mean Corpuscular Hemoglobin 31.3 pg (28.0-32.0); Mean Corpuscular Volume 94.7 fL (80.0-100.0); Nucleated Red Blood Cells % 0.2 %
[2025-05-15] MEDS: ASPirin-EC 81 mg tab PO SCH (08:50)
--- NOTE | 2025-05-15 10:11 | DVHPNRES ---
Progress Note Date Seen: May 15, 2025 Resident Creating Document: EULALIA GAINES Medical Necessity Reason Pt with a Central, PICC or Fol: No Subjective Review of Systems Lizbeth Taylor is a 79-year-old female patient who presents to the ED with chief complaint of intractable constant throbbing holocephalic headache which started approximately three days ago, intensity 10/10 and has not improved with Tylenol, associated with photophobia, chills, nausea and nonbloody vomiting. Patient also reports dyspnea in the context of missing one hemodialysis session (patient did receive hemodialysis session on Monday05/12/2025 but did not get it on Monday05/09/2025). Denies any associated symptoms including neck stiffness, sick contacts, recent travel and neurological deficits. Past medical history: Hypertension, dyslipidemia, diabetes, end-stage renal disease (completing [facility], Monday and Monday), questionable asthma, gastritis, umbilical hernia status postop with recurrence, chronic diarrhea, osteoporosis Surgical history: Av fistula, hernia repair Family history: Heart disease in father's side Social history: Lives in [place] with daughter (next of kin). Denies current tobacco, alcohol and other drug abuse. Allergies: Denies Home medication: Does not recall. Per EMR atorvastatin and labetalol. Patient seen and examined at bedside. Currently continues with throbbing holocephalic headache intensity 10/10. Patient's blood pressure continues elevated. Patient underwent hemodialysis session on 05/14/2025. On 05/15/25, Patient was seen and examined at bedside. Overnight events were reviewed. Patient reports severe right parietal headache that started this morning. subsided with Tylenol. Ordered another hemodialysis session to prevent recurrence of uremic symptoms. Objective vital signs Vital Sign Date Time Temp Pulse Resp B/P (MAP) Pulse Ox O2 Delivery O2 Flow Rate FiO2 05/15/25 09:07 97.9 76 20 124/72 (89) 97 97.9 05/14/25 23:43 Nasal Cannula* 2 28 Total Intake and Output 05/14/25 05/14/25 05/15/25 15:00 23:00 07:00 Intake Total 200 ml Balance 200 ml medications Current Medications Medications Dose Ordered Sig/Abilio Route Start Time Stop Time Status Last Admin Dose Admin Acetaminophen 650 mg Q6HP PRN PO 05/13/25 22:15 05/15/25 08:51 650 MG Furosemide 40 mg DAILY IV 05/14/25 10:00 05/15/25 08:49 40 MG Labetalol HCl 300 mg Q12HR PO 05/14/25 10:00 05/15/25 08:50 300 MG Diagnostic Test (Pha) 1 strip ACHS 05/14/25 07:00 05/15/25 06:06 1 STRIP Insulin Human Regular ACHS SC 05/14/25 07:00 Dextrose 50 ml UD PRN IV 05/14/25 05:15 Atorvastatin Calcium 40 mg HS PO 05/14/25 22:00 05/14/25 23:12 40 MG Morphine Sulfate 1 mg Q4HP PRN IV 05/14/25 16:15 UNV Aspirin 81 mg DAILY PO 05/15/25 10:00 05/15/25 08:50 81 MG Nifedipine 30 mg DAILY PO 05/15/25 10:00 05/15/25 08:49 30 MG Morphine Sulfate 2 mg Q4HPRN PRN IV 05/14/25 16:30 05/14/25 16:38 2 MG Ondansetron HCl 4 mg Q4HPRN PRN IV 05/14/25 16:30 05/14/25 16:37 4 MG Ergocalciferol 50,000 unit Q7D PO 05/14/25 22:00 Examination Patient lying in bed, in no acute distress General: Lucid, afebrile, mucosae are moist Cardiovascular: Normal S1 and S2. No murmurs, gallops or rubs Respiratory: Normal ventilation mechanics. Clear lung sounds on auscultation Abdomen: Soft, nontender, no organomegaly, normal bowel sounds MSK/skin: Mobilizes 4 limbs. Skin is dry and warm. Left arm AV fistula which thrills Neurological: Oriented in 3 spheres. No motor no sensitive deficits. Pupils are isocoric and reactive. Negative Brudzinski sign laboratory and microbiology Laboratory Tests 05/15/25 05:41 Test 05/15/25 05:41 Range/Units Serum Glucose 85 74-106 mg/dL Labs and/or images reviewed: Labs reviewed by me, Image(s) reviewed by me Problem List/Assessment/Plan Problem List/Assessment/Plan Hypertensive crisis Rule out CVA Intractable headache Unlikely meningitis/encephalitis Completed head CT which ruled out intracranial hemorrhage. Generalized volume loss and sequela of chronic microvascular ischemic changes Ordered echocardiogram, carotid duplex and MRI. Optimize pain therapy (Tylenol and morphine) Currently with p.o. labetalol, nifedipine Echocardiogram pending ESRD on hemodialysis Chest x-ray: Cardiomegaly, pleural effusion Nephrology on board: Completing hemodialysis session (05/14/25). Patient urinates. Currently on IV furosemide. Type 2 diabetes mellitus - Controlled (Hemoglobin A1c 4.8%) Hypertension Dyslipidemia Monitor blood glucose Continue labetalol 300 mg p.o. b.i.d. Indicated nifedipine 30 mg p.o. daily Chronic diarrhea Ordered stool studies. Osteoporosis Scoliosis Ordered vitamin-D Goals of care discussed with patient for over 18 minutes: Full code status Discussed plan with Olivia, daughter, patient and nurses: Admitted to telemetry. Planning to rule out CVA, patient has intractable headache (restrictive of her lifetime). Optimizing antihypertensive medication. Pending complementary workup. Plan discussed with: Patient, Other (RN) My Orders My Orders Orders - EULALIA GAINES Procedure Category Date Status Time Basic Metabolic Panel LAB 05/16/25 Verified 04:00 Complete Blood Count LAB 05/16/25 Verified 04:00 Visit Coding STANDARD RES Billing Provider: ADELA MCKEON MD Date of Service if different f: May 15, 2025 Common Visit Codes: [id number] INP/OBS CARE(HIGH) EULALIA GAINES May 15, 2025 10:11
[2025-05-15 20:59] LABS: Urine Protein, UAD 3+ (Negative); Urine WBC Clumps PRESENT /hpf (None Seen)
[2025-05-15 21:15] LABS: Opiate Scree,Urine Neg (NEGATIVE)
[2025-05-15 21:16] LABS: Amphetamine Screen, Urine Neg (NEGATIVE); Barbiturate Scree,Urine Neg (NEGATIVE); Benzodiazephine Screen, Urine Neg (NEGATIVE); Cannabinoid Screen, Urine Neg (NEGATIVE); Cocaine Screen, Urine Neg (NEGATIVE); Phencyclidine Screen, Urine Neg (NEGATIVE)
[2025-05-16] VITALS (8 sets, daily range): BP systolic 109–148; BP diastolic 47–69; PULSE 59–75; RESP 16–20; TEMP 97.3–98.2; O2SAT 95–100
--- NOTE | 2025-05-16 01:07 | DVHSR ---
APPROVED REPORT EXAM: Two-dimensional and M-mode echocardiogram with Doppler and color Doppler. Blood Pressure: 137/66 mmHg INDICATION questionable CVA RISK FACTORS Height: 5'2, Weight: 127 DIMENSIONS LVDd 3.6 (3.8-5.7cm) LA (2D) 5.6 (1.9-4.0cm) Aortic Root 3.3 (2.0-3.7cm) LVDs 2.2 (2.5-4.0cm) LA (MM) (1.9-4.0cm) Aortic Cusp Exc 1.6 (1.5-2.0cm) EF (%) 60.0 (55-70%) Rt. Atrium 3.8 (1.9-4.0cm) Asc. Aorta 3.3 cm IVSd 0.9 (0.7-1.1cm) RV (D) 3.7 (1.8-2.4cm) PWd 1.2 (0.7-1.1cm) Mitral Valve Mitral Mitral Stenosis E wave 1.25m/s MV Mean GR. 4mmHg A wave 1.21m/s MV Peak GR. 100mmHg E/A ratio 1.0 2D MVA cm2 DECEL Time 398ms PRESS 1/2 Time ms Aortic Valve Aortic Valve Aortic Stenosis V1 1.18m/s AO Mean GR. 5mmHg V2 1.44m/s AO Peak GR. 8mmHg LVOT Diameter 2.1 (1.8-2.4cm) Doppler SAAD 2.84cm2 Pulmonic Valve V2 1.36m/s Tricuspid Valve TR Velocity 2.45m/s RVSP 30mmHg Conclusion MODERATE DEGREE LVH AND MODERATE DEGREE LV DIASTOLIC DYSFUNCTION LV EF IS 65% AND IS NORMAL SLIGHTLY DILATED RV AND RA VERY HEAVILY CALCIFIED POSTERIOR MITRAL LEAFLET MODERATELY DILATED LA RVSP IS 30 MM OF HG AND IS NORMAL
[2025-05-16 06:00] LABS: Hematocrit 35.3 % (36.0-46.0); Hemoglobin 11.7 g/dL (12.2-16.2); Mean Corpuscular Hemoglobin 31.4 pg (28.0-32.0); Mean Corpuscular Volume 94.8 fL (80.0-100.0); Nucleated Red Blood Cells % 0.1 %
[2025-05-16 06:08] LABS: Anion Gap 12 (5-15); Carbon Dioxide 27 mmol/L (20-31); Potassium 4.9 mmol/L (3.5-5.1)
[2025-05-16 06:14] LABS: BUN/Creatinine Ratio 7.0 (10.0-20.0); Glucose 83 mg/dL (74-106)
[2025-05-16 06:23] LABS: Blood Urea Nitrogen 50 mg/dL (9-23); Calcium 8.0 mg/dL (8.7-10.4); Chloride 94 mmol/L (98-107); Sodium 133 mmol/L (136-145)
--- NOTE | 2025-05-16 10:18 | DVHPN2 ---
Progress Note - Dictate Date Seen: May 16, 2025 Medical Necessity Reason Pt with a Central, PICC or Fol: No Subjective No acute issues overnight. Denies any headaches. vital signs Vital Sign Date Time Temp Pulse Resp B/P (MAP) Pulse Ox O2 Delivery O2 Flow Rate FiO2 05/16/25 09:46 123/62 05/16/25 09:45 62 05/16/25 09:00 98.0 17 100 98.0 05/15/25 20:00 Room Air* 0 21 Total Intake and Output 05/15/25 05/15/25 05/16/25 15:00 23:00 07:00 Intake Total 1200 ml 300 ml Balance 1200 ml 300 ml medications Current Medications Medications Dose Ordered Sig/Abilio Route Start Time Stop Time Status Last Admin Dose Admin Acetaminophen 650 mg Q6HP PRN PO 05/13/25 22:15 05/16/25 05:37 650 MG Furosemide 40 mg DAILY IV 05/14/25 10:00 05/16/25 09:46 40 MG Labetalol HCl 300 mg Q12HR PO 05/14/25 10:00 05/16/25 09:45 300 MG Diagnostic Test (Pha) 1 strip ACHS 05/14/25 07:00 05/16/25 06:13 1 STRIP Insulin Human Regular ACHS SC 05/14/25 07:00 05/15/25 20:59 3 UNITS Dextrose 50 ml UD PRN IV 05/14/25 05:15 Atorvastatin Calcium 40 mg HS PO 05/14/25 22:00 05/15/25 21:05 40 MG Morphine Sulfate 1 mg Q4HP PRN IV 05/14/25 16:15 UNV Aspirin 81 mg DAILY PO 05/15/25 10:00 05/16/25 09:46 81 MG Nifedipine 30 mg DAILY PO 05/15/25 10:00 05/16/25 09:46 30 MG Morphine Sulfate 2 mg Q4HPRN PRN IV 05/14/25 16:30 05/14/25 16:38 2 MG Ondansetron HCl 4 mg Q4HPRN PRN IV 05/14/25 16:30 05/14/25 16:37 4 MG Ergocalciferol 50,000 unit Q7D PO 05/14/25 22:00 Ceftriaxone Sodium 50 ml @ 100 mls/hr DAILY@09 IV 05/16/25 09:00 05/16/25 09:46 100 MLS/HR objective Awake alert oriented x3 HEENT: Normocephalic, no JVD Lungs: Bilateral good air entry CVS: S1, S2 regular rate rhythm Abdomen: Soft, bowel sounds present 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 Patient is stable from renal standpoint for discharge. Plan discussed with: Patient SINA GREGG MD May 16, 2025 10:18
--- NOTE | 2025-05-16 13:32 | DVHPNRES ---
Progress Note Date Seen: May 16, 2025 Resident Creating Document: EULALIA GAINES Medical Necessity Reason Pt with a Central, PICC or Fol: No Subjective Review of Systems Lizbeth Taylor is a 79-year-old female patient who presents to the ED with chief complaint of intractable constant throbbing holocephalic headache which started approximately three days ago, intensity 10/10 and has not improved with Tylenol, associated with photophobia, chills, nausea and nonbloody vomiting. Patient also reports dyspnea in the context of missing one hemodialysis session (patient did receive hemodialysis session on Monday05/12/2025 but did not get it on Monday05/09/2025). Denies any associated symptoms including neck stiffness, sick contacts, recent travel and neurological deficits. Past medical history: Hypertension, dyslipidemia, diabetes, end-stage renal disease (completing [facility], Monday and Monday), questionable asthma, gastritis, umbilical hernia status postop with recurrence, chronic diarrhea, osteoporosis Surgical history: Av fistula, hernia repair Family history: Heart disease in father's side Social history: Lives in [place] with daughter (next of kin). Denies current tobacco, alcohol and other drug abuse. Allergies: Denies Home medication: Does not recall. Per EMR atorvastatin and labetalol. Patient seen and examined at bedside. Currently continues with throbbing holocephalic headache intensity 10/10. Patient's blood pressure continues elevated. Patient underwent hemodialysis session on 05/14/2025. On 05/15/25, Patient was seen and examined at bedside. Overnight events were reviewed. Patient reports severe right parietal headache that started this morning. subsided with Tylenol. Ordered another hemodialysis session to prevent recurrence of uremic symptoms. On 05/16/25, Patient reports no acute issues overnight. Denies headaches. No new complaints. Continue dialysis today as scheduled (on MW). Objective vital signs Vital Sign Date Time Temp Pulse Resp B/P (MAP) Pulse Ox O2 Delivery O2 Flow Rate FiO2 05/16/25 09:46 123/62 05/16/25 09:45 62 05/16/25 09:00 98.0 17 100 98.0 05/15/25 20:00 Room Air* 0 21 Total Intake and Output 05/15/25 05/15/25 05/16/25 15:00 23:00 07:00 Intake Total 1200 ml 300 ml Balance 1200 ml 300 ml medications Current Medications Medications Dose Ordered Sig/Abilio Route Start Time Stop Time Status Last Admin Dose Admin Acetaminophen 650 mg Q6HP PRN PO 05/13/25 22:15 05/16/25 05:37 650 MG Furosemide 40 mg DAILY IV 05/14/25 10:00 05/16/25 09:46 40 MG Labetalol HCl 300 mg Q12HR PO 05/14/25 10:00 05/16/25 09:45 300 MG Diagnostic Test (Pha) 1 strip ACHS 05/14/25 07:00 05/16/25 11:27 1 STRIP Insulin Human Regular ACHS SC 05/14/25 07:00 05/15/25 20:59 3 UNITS Dextrose 50 ml UD PRN IV 05/14/25 05:15 Atorvastatin Calcium 40 mg HS PO 05/14/25 22:00 05/15/25 21:05 40 MG Morphine Sulfate 1 mg Q4HP PRN IV 05/14/25 16:15 UNV Aspirin 81 mg DAILY PO 05/15/25 10:00 05/16/25 09:46 81 MG Nifedipine 30 mg DAILY PO 05/15/25 10:00 05/16/25 09:46 30 MG Morphine Sulfate 2 mg Q4HPRN PRN IV 05/14/25 16:30 05/14/25 16:38 2 MG Ondansetron HCl 4 mg Q4HPRN PRN IV 05/14/25 16:30 05/14/25 16:37 4 MG Ergocalciferol 50,000 unit Q7D PO 05/14/25 22:00 Ceftriaxone Sodium 50 ml @ 100 mls/hr DAILY@ IV 05/16/25 09:00 05/16/25 09:46 100 MLS/HR Examination Patient lying in bed, in no acute distress General: Lucid, afebrile, mucosae are moist Cardiovascular: Normal S1 and S2. No murmurs, gallops or rubs Respiratory: Normal ventilation mechanics. Clear lung sounds on auscultation Abdomen: Soft, nontender, no organomegaly, normal bowel sounds MSK/skin: Mobilizes 4 limbs. Skin is dry and warm. Left arm AV fistula which thrills Neurological: Oriented in 3 spheres. No motor no sensitive deficits. Pupils are isocoric and reactive. Negative Brudzinski sign laboratory and microbiology Laboratory Tests 05/16/25 05:28 Test 05/16/25 05:28 Range/Units Serum Glucose 83 74-106 mg/dL Labs and/or images reviewed: Labs reviewed by me (RN), Image(s) reviewed by me Problem List/Assessment/Plan Problem List/Assessment/Plan Hypertensive crisis Rule out CVA Intractable headache Unlikely meningitis/encephalitis Completed head CT which ruled out intracranial hemorrhage. Generalized volume loss and sequela of chronic microvascular ischemic changes Ordered echocardiogram, carotid duplex and MRI. Optimize pain therapy (Tylenol and morphine) Currently with p.o. labetalol, nifedipine Echocardiogram: Moderate degree LVH and moderate degree LV diastolic dysfunction. LVEF is 65% and is normal. Slightly and a dilated RV and RA. ESRD on hemodialysis Chest x-ray: Cardiomegaly, pleural effusion Nephrology on board: Completing hemodialysis session (05/14/25). Patient urinates. Currently on IV furosemide. UTI UA positive to UTI on Rocephin Urine bacterial culture Type 2 diabetes mellitus - Controlled (Hemoglobin A1c 4.8%) Hypertension Dyslipidemia Monitor blood glucose Continue labetalol 300 mg p.o. b.i.d. Indicated nifedipine 30 mg p.o. daily Chronic diarrhea Ordered stool studies. Osteoporosis Scoliosis Ordered vitamin-D Goals of care discussed with patient for over 18 minutes: Full code status Discussed plan with Dr. Baker, daughter, patient and nurses: Admitted to telemetry. Planning to rule out CVA, patient has intractable headache (restrictive of her lifetime). Optimizing antihypertensive medication. Pending complementary workup. Plan discussed with: Patient, Other My Orders My Orders Orders - EULALIA GAINES Procedure Category Date Status Time *[facility] -[facility] CONS 05/15/25 Transmitted Mayi 13:34 Visit Coding STANDARD RES Billing Provider: ADELA BAKER MD Date of Service if different f: May 16, 2025 Common Visit Codes: [id number] INP/OBS CARE(HIGH) EULALIA GAINES RESIDENT May 16, 2025 13:32
[2025-05-17 01:00] VITALS: BP 118/64; PULSE 69; RESP 17; TEMP 97.6; O2SAT 100
[2025-05-17 05:00] VITALS: BP 120/80; PULSE 70; RESP 17; TEMP 97; O2SAT 98
[2025-05-17 07:07] LABS: Hematocrit 34.5 % (36.0-46.0); Hemoglobin 11.4 g/dL (12.2-16.2); Mean Corpuscular Hemoglobin 31.3 pg (28.0-32.0); Mean Corpuscular Volume 94.5 fL (80.0-100.0); Nucleated Red Blood Cells % 0.1 %
[2025-05-17 07:19] LABS: Anion Gap 11 (5-15); Carbon Dioxide 29 mmol/L (20-31); Potassium 4.6 mmol/L (3.5-5.1); Sodium 136 mmol/L (136-145)
[2025-05-17 07:25] LABS: BUN/Creatinine Ratio 4.4 (10.0-20.0)
[2025-05-17 07:28] LABS: Blood Urea Nitrogen 25 mg/dL (9-23); Calcium 8.2 mg/dL (8.7-10.4); Chloride 96 mmol/L (98-107); Glucose 58 mg/dL (74-106)
[2025-05-17 08:00] VITALS: PULSE 60; RESP 16; O2SAT 100
[2025-05-17] MEDS ORDERED: CEPH250C PO (08:17)
[2025-05-17] MEDS ORDERED: ASPI-543 PO (08:17)
[2025-05-17] MEDS ORDERED: ERGO1CAP23 PO (08:17)
[2025-05-17] MEDS ORDERED: NIFE1TAB31 PO (08:17)
[2025-05-17] MEDS ORDERED: ACET-1882 PO (08:17)
[2025-05-17] MEDS ORDERED: FURO40TA4 PO (08:17)
--- NOTE | 2025-05-17 08:18 | DVHDSRES ---
Discharge Summary Date of Admission Resident Creating Document: MICAH GONSALEZ RESIDENT May 13, 2025 at 22:14 Date of Discharge: May 17, 2025 Labs/Diagnostic Data: Laboratory Results Test 05/17/25 05:15 05/17/25 04:40 05/14/25 17:32 05/14/25 17:00 POC Glucose 88 mg/dl (70-106) White Blood Count 5.9 10^3/uL (4.4-10.8) Red Blood Count 3.66 10^6/uL (4.0-5.20) Hemoglobin 11.4 g/dL (12.2-16.2) Hematocrit 34.5 % (36.0-46.0) Mean Corpuscular Volume 94.5 fL (80.0-100.0) Mean Corpuscular Hemoglobin 31.3 pg (28.0-32.0) Mean Corpuscular Hemoglobin Concent 33.1 g/dL (32.0-36.0) Red Cell Distribution Width 16.0 % (11.8-14.3) Platelet Count 186 10^3/uL (140-450) Mean Platelet Volume 8.1 fL (6.9-10.8) Neutrophils (%) (Auto) 55.5 % (37.0-80.0) Lymphocytes (%) (Auto) 30.6 % (10.0-50.0) Monocytes (%) (Auto) 8.9 % (0.0-12.0) Eosinophils (%) (Auto) 4.1 % (0.0-7.0) Basophils (%) (Auto) 0.9 % (0.0-2.0) Neutrophils # (Auto) 3.2 10 ^3/uL (1.6-8.6) Lymphocytes # (Auto) 1.8 10 ^3/uL (0.4-5.4) Monocytes # (Auto) 0.5 10 ^3/uL (0-1.3) Eosinophils # (Auto) 0.2 10 ^3/uL (0-0.8) Basophils # (Auto) 0.1 10 ^3/uL (0-0.2) Nucleated Red Blood Cells 0.1 % Sodium Level 136 mmol/L (136-145) Potassium Level 4.6 mmol/L (3.5-5.1) Chloride Level 96 mmol/L (98-107) Carbon Dioxide Level 29 mmol/L (20-31) Anion Gap 11 (5-15) Blood Urea Nitrogen 25 mg/dL (9-23) Creatinine 5.74 mg/dL (0.550-1.02) Glomerular Filtration Rate Calc 7 mL/min (>90) BUN/Creatinine Ratio 4.4 (10.0-20.0) Serum Glucose 58 mg/dL (74-106) Calcium Level 8.2 mg/dL (8.7-10.4) Prothrombin Time 11.3 sec (9.3-11.8) Prothrombin Time INR 1.07 (0.9-1.15) Activated Partial Thromboplast Time 24.0 SEC (24.5-34.5) Lactic Acid Level 1.2 mmol/L (0.4-2.0) Ammonia < 10 umol/L (11-32) Urine Color Light-brown (Yellow) Urine Clarity Ex.turbid (Clear) Urine pH 8.0 (5.0-9.0) Urine Specific [place] 1.011 (1.001-1.035) Urine Protein 3+ (Negative) Urine Ketones Negative (Negative) Urine Blood 2+ /uL (Negative) Urine Nitrite Negative (Negative) Urine Bilirubin Negative (Negative) Urine Urobilinogen Normal mg/dL (Negative) Urine Leukocyte Esterase 3+ /uL (Negative) Urine RBC 89 /hpf (0 - 4) Urine WBC Clumps Present /hpf (None Seen) Urine Microscopic WBC 932 /HPF (0-5) Urine Squamous Epithelial Cells Few /hpf (<5) Urine Bacteria Few /hpf (None Seen) Urine Mucus Few (None Seen) Urine Glucose Normal mg/dL (Normal) Urine Opiates Screen Neg (NEGATIVE) Urine Fentanyl Screen Neg (NEGATIVE) Urine Barbiturates Screen Neg (NEGATIVE) Urine Phencyclidine Screen Neg (NEGATIVE) Urine Amphetamines Screen Neg (NEGATIVE) Urine Benzodiazepines Screen Neg (NEGATIVE) Urine Cocaine Screen Neg (NEGATIVE) Urine Cannabinoids Screen Neg (NEGATIVE) Test 05/14/25 06:48 05/14/25 06:18 05/14/25 01:55 05/13/25 21:14 Vitamin B12 Level 593 pg/mL (211-911) Vitamin D 25-Hydroxy 26.6 ng/mL (30.0-100) Hepatitis A IgM Antibody Negative Hepatitis B Surface Antigen Negative (Negative) Hepatitis B Core IgM Antibody Negative (Negative) Hepatitis C Antibody Negative (Negative) Hemoglobin A1c 4.8 % A1C (<5.7) Phosphorus Level 5.8 mg/dL (2.4-5.1) Magnesium Level 2.6 mg/dL (1.6-2.6) Total Bilirubin 0.4 mg/dL (0.2-1.0) Aspartate Amino Transferase (AST) 13 U/L (13-40) Alanine Aminotransferase (ALT) 11 U/L (7-40) Alkaline Phosphatase 60 U/L (46-116) Total Protein 7.2 g/dL (5.7-8.2) Albumin 4.0 g/dL (3.2-4.8) Triglycerides Level 89 mg/dL (< 150) Cholesterol Level 187 mg/dL (< 200) LDL Cholesterol 108 mg/dL (< 100) HDL Cholesterol 60 mg/dL (40-59) Thyroid Stimulating Hormone (TSH) 2.77 uIU/mL (0.55-4.78) Blood Gas Specimen Type Arterial Blood Gas Sample Site Right radial Blood Gas Patient Temperature 37.0 Arterial Blood Date Drawn [id number] Arterial Blood pH 7.507 (7.350-7.450) Arterial Blood Partial Pressure CO2 36.3 mmHg (32.0-45.0) Arterial Blood Partial Pressure O2 116.2 mmHg (83.0-108.0) Arterial Blood HCO3 28.1 mmol/L (21.0-28.0) Arterial Blood Oxygen Saturation 97.6 % (94.0-98.0) Arterial Blood Base Excess 5.0 mmol/L (-2.0-3.0) Arterial Blood Oxyhemoglobin 96.3 % (94.0-98.0) Arterial Blood Carboxyhemoglobin 0.9 % (0.5-1.5) Arterial Blood Methemoglobin 0.4 % (0.0-1.5) Arterial Blood Deoxyhemoglobin 2.4 % (0.0-5.0) Fernando Test Yes Blood Gas Total Hemoglobin 12.30 g/dL (12.0-16.0) Blood Gas Liter Flow 2.00 Blood Gas Modality Nasal cannula Blood Gas Spontaneous Rate 20 FiO2 % 28.0 Troponin I High Sensitivity 26 ng/L (</=34) Test 05/13/25 18:32 D-Dimer, Quantitative 1.17 mg/L FEU (0.0-0.49) Other Laboratory Tests 05/17/25 04:40 Brief Hx & Hospital Course: Lizbeth Taylor is a 79-year-old female patient who presents to the ED with chief complaint of intractable constant throbbing holocephalic headache which started approximately three days before her admission, intensity 10/10 and has not improved with Tylenol, associated with elevated blood pressure at home (SBP above 200mmHg), photophobia, chills, nausea and nonbloody vomiting. Patient also reports dyspnea in the context of missing one hemodialysis session (patient did receive hemodialysis session on Monday05/12/2025 but did not get it on Monday05/09/2025). Denies any associated symptoms including neck stiffness, sick contacts, recent travel and neurological deficits. Past medical history: Hypertension, dyslipidemia, diabetes, end-stage renal disease (completing [facility] group, Monday and Monday), questionable asthma, gastritis, umbilical hernia status postop with recurrence, chronic diarrhea, osteoporosis Surgical history: Av fistula, hernia repair Family history: Heart disease in father's side Social history: Lives in [place] with daughter (next of kin). Denies current tobacco, alcohol and other drug abuse. Allergies: Denies Home medication: Does not recall. Per EMR atorvastatin and labetalol. Brief hospital course: Hypertensive crisis associated with UTI symptomatic by holocephalic intractable headache in the context of a patient with ESRD who missed one session of HD, responding to empiric IV antibiotic (Ceftriaxone), PO anti-hypertensive medication (labetalol and nifedipine) and IV analgesia. Completed head CT and MRI which ruled out CVA. Complementary work up included echocardiogram (Moderate degree LVH and moderate degree LV diastolic dysfunction. LVEF is 65% and is normal. Slightly and a dilated RV and RA) and carotid Doppler (Atherosclerotic vascular disease with no hemodynamically significant stenosis). Nephrology evaluated patient and completed HD sessions. Patient hemodynamically stable, asymptomatic, in conditions to be discharged home. Was granted under optimal medical therapy (Keflex for 3 more days, Labetalol and Nifedipine), gave advice on healthy life style habits (compliance with HD sessions and avoiding salty foods), and follow up as outpatient with PCP and Nephrology. DIAGNOSIS Hypertensive crisis Rule out CVA Intractable headache Unlikely meningitis/encephalitis ESRD on hemodialysis UTI Type 2 diabetes mellitus - Controlled (Hemoglobin A1c 4.8%) Hypertension Dyslipidemia Chronic diarrhea Osteoporosis Scoliosis Vitamin D deficiency Goals of care discussed with patient for over 18 minutes: Full code status Discussed plan with Olivia, daughter, patient and nurses Physical Examination Patient lying in bed, in no acute distress General: Lucid, afebrile, mucosae are moist Cardiovascular: Normal S1 and S2. No murmurs, gallops or rubs Respiratory: Normal ventilation mechanics. Clear lung sounds on auscultation Abdomen: Soft, nontender, no organomegaly, normal bowel sounds MSK/skin: Mobilizes 4 limbs. Skin is dry and warm. Left arm AV fistula which thrills Neurological: Oriented in 3 spheres. No motor no sensitive deficits. Pupils are isocoric and reactive. Negative Brudzinski sign Condition at Discharge: Stable Final Diagnosis/Problems List Hypertensive crisis Rule out CVA Intractable headache Unlikely meningitis/encephalitis ESRD on hemodialysis UTI Type 2 diabetes mellitus - Controlled (Hemoglobin A1c 4.8%) Hypertension Dyslipidemia Chronic diarrhea Osteoporosis Scoliosis Vitamin D deficiency Discharge Disposition: Home SNF Discharge Will this Physician continue t: No Discharge Instruct/Medications Diet: Renal Activity: No Restrictions, As Tolerated Follow Up/Referral: PCP Nephrology Medications: Per EMR Scheduled Aspirin (Aspir-Low), 81 MG PO DAILY Atorvastatin Calcium (Atorvastatin Calcium), 40 TAB PO DAILY, (Reported) Cephalexin (Keflex Capsule), 1 CAP PO QID Ergocalciferol (Vitamin D 13243 Unit), 50,000 UNIT PO Q7D Furosemide (Furosemide), 1 TAB PO DAILY Labetalol Hcl (Labetalol Hcl), 300 TAB PO BID, (Reported) Nifedipine (Nifedipine Er), 30 MG PO DAILY Scheduled PRN Acetaminophen (Acetaminophen), 650 MG PO Q6HP PRN Discharge Statement: "Patient was advised to return to the ER or call 911 if any headaches, dizziness, shortness of breath, chest pain, abdominal pain, bleeding, fevers, or worsening of medical condition. Patient was counseled about treatment plan, medications, possible side effects, patientverbalized understanding. All questions were answered to the best of my ability. This discharge took greater then 30 minutes in planning, reviewing documentation, counseling the patient, and discussing with other team members." ASSESSMENT ASSESSMENT Assessment Hypertensive crisis Visit Coding STANDARD RES Billing Provider: ADELA MCKEON MD Date of Service if different f: May 17, 2025 Common Visit Codes: 77499-HBZ/OBS DISCH DAY >30min MICHA GONSALEZ RESIDENT May 17, 2025 08:17
[2025-05-17 08:42] VITALS: BP 123/52; PULSE 82; RESP 16; TEMP 98; O2SAT 100
[2025-05-17 10:31] VITALS: BP 123/52; PULSE 82; RESP 16; TEMP 98; O2SAT 100
[2025-05-17 13:00] VITALS: BP 137/66; PULSE 65; RESP 16; TEMP 97.9; O2SAT 100
== END 2025-05-17 12:50 | disposition home or self-care (01) | DRG 304 ==
LOC: ER 17:25 → OVERFLOW 22:14 → UNDOADMIN 22:14 → TELE-CENTR 22:14
PROVIDERS: ADMIT Internal Medicine; ATTEND Internal Medicine
PROC: 5A1D70Z Performance of Urinary Filtration, Intermittent, Less than 6 Hours Per Day (ICD-10-PCS; principal; 2025-05-14)
PROC: 5A1D70Z Performance of Urinary Filtration, Intermittent, Less than 6 Hours Per Day (ICD-10-PCS; 2025-05-16)
DX: I16.9 Hypertensive crisis, unspecified (principal); N18.6 End stage renal disease; J90 Pleural effusion, not elsewhere classified; I13.11 Hypertensive heart and chronic kidney disease without heart failure, with stage 5 chronic kidney disease, or end stage renal disease; N39.0 Urinary tract infection, site not specified; Z99.2 Dependence on renal dialysis; E11.65 Type 2 diabetes mellitus with hyperglycemia; E78.5 Hyperlipidemia, unspecified; M81.0 Age-related osteoporosis without current pathological fracture; E11.22 Type 2 diabetes mellitus with diabetic chronic kidney disease; K52.9 Noninfective gastroenteritis and colitis, unspecified; M41.9 Scoliosis, unspecified; Z82.49 Family history of ischemic heart disease and other diseases of the circulatory system
CPT/HCPCS: 36415; 36600; 70450; 70551; 71045; 80048; 80053; 80061; 80074; 80307; 81001; 82140; 82306; 82607; 82805; 82962; 83036; 83605; 83735; 84100; 84443; 84484; 85025; 85379; 85610; 85730; 90935; 93005; 93306; 93886; 99291; G0378; J1815; J2405